=== PATIENT | male | born 1965 ===

== ENCOUNTER → 2016-07-06 | Outpatient (CLI) | payer BC ==
--- NOTE | 2016-07-06 11:37 | CR ---
EXAMINATION: Two-view chest (PA and Lateral views). HISTORY: History of tuberculosis. FINDINGS: The trachea is midline. The cardiomediastinal silhouette is within normal limits. No pulmonary infil trates, effusions or pneumothorax. There is a 2.4 x 1.5 cm nodule within the left upper lobe. Osseous structures appear unremarkable. IMPRESSION: 1. No acute cardiopulmonary process. 2. There is a 2.4 x 1.5 cm nodule within the left upper lobe. Follow-up with a CT may be beneficial if this has not been previously evaluated.
--- NOTE | 2016-07-09 09:26 | US ---
EXAMINATION: Thyroid ultrasound HISTORY: Nodule COMPARISON: None TECHNIQUE: Grayscale and color Doppler images obtained of the thyroid gland FINDINGS: The right thyroid lobe measures 4.4 x 1.8 x 2 cm the left thyroid lobe measures 4.7 x 2.8 x 0.6 cm. The right thyroid lobe appears normal in contour and echotexture without a dominant nodule . The isthmus is also normal at 2 3-mm. The left thyroid lobe appears mildly heterogeneous and predo minantly appears to be consisting of an isoechoic nodule. There are possibly faint echogenic foci wi thin the nodule. IMPRESSION: 1. The left thyroid lobe is enlarged predominantly containing an isoechoic mildly heterogeneous nodu le with possible microcalcifications. Ultrasound-guided biopsy is recommended.
== END ==
LOC: MW.US 10:47
PROVIDERS: ATTEND Internal Medicine
DX: E04.1 Nontoxic single thyroid nodule (principal); Z86.11 Personal history of tuberculosis; R91.1 Solitary pulmonary nodule
CPT/HCPCS: 71020; 71020-26; 76536-26; 76536-50

== ENCOUNTER → 2016-07-13 | Outpatient (CLI) | payer BC | LOC: MW.CHIM 10:58 | PROVIDERS: ATTEND Internal Medicine | DX: E04.1 Nontoxic single thyroid nodule (principal); E78.5 Hyperlipidemia, unspecified; E11.65 Type 2 diabetes mellitus with hyperglycemia | CPT/HCPCS: 36415; 80061; 83036; 84439; 84443; 84481; 85025; 85610; 85730 ==

== ENCOUNTER → 2016-07-23 | Outpatient (CLI) | payer BC | LOC: MW.US 09:32 | PROVIDERS: ATTEND Internal Medicine | DX: E04.1 Nontoxic single thyroid nodule (principal); Z53.9 Procedure and treatment not carried out, unspecified reason ==